=== PATIENT | male | born 2000 | race Caucasian/White ===

== ENCOUNTER 2022-05-22 13:57 | Emergency (ER) | payer OTHER, SELFPAY ==
[2022-05-22 14:06] VITALS: BP 130/78; PULSE 94; RESP 20; TEMP 37; O2SAT 100
[2022-05-22 14:11] VITALS: BP 130/78; PULSE 94; RESP 20; TEMP 37; O2SAT 100
--- NOTE | 2022-05-22 14:41 | ED.GENADULT ---
HPI - General Adult General Chief complaint: Extremity Injury, Upper Stated complaint: Left Hand/ Fingers Numbness Time Seen by Provider: 05/22/22 14:41 Source: patient, RN notes reviewed and old records reviewed Mode of arrival: ambulatory Limitations: no limitations History of Present Illness HPI narrative: 22-year-old male who presents to [facility] care with complaints of experiencing some left hand and finger numbness with some tingling in his lower left arm for about a week. Pateint reports that initially he noted numbness and tingling to his 4th and 5th fingers after working on a 3 hour tattoo Monday evening. He is right hand dominant and draws with right hand but holds skin taunt while doing tattoo. Patient reports that he thinks his symptoms are worse and he feels like he doesn't have is normal strength in his left hand. No obvious deformity, nail beds mahogany briskly pulses strong to his left wrist and brachial region, reports no pain.. MD complaint: numbness and decreased strength left hand Onset (ago): day(s) (6) Treatments prior to arrival: none Related Data Allergies Allergy/AdvReac Type Severity Reaction Status Date / Time No Known Allergies Allergy Verified 05/22/22 14:10 Review of Systems Review of Systems: CONSTITUTIONAL: Denies fever, chills, or sweats. EYES: Denies visual changes, redness, or discharge. ENT: Denies rhinorrhea, congestion, sore throat, or otalgia. CARDIOVASCULAR: Denies chest pain, palpitations, or edema. RESPIRATORY: Denies cough or dyspnea. GASTROINTESTINAL: Denies abdominal pain, nausea, vomiting, or diarrhea. GENITOURINARY: Denies dysuria or hematuria. SKIN: Denies rash or itching. MUSCULOSKELETAL: Denies back pain, joint pain, or myalgia. NEUROLOGIC: Denies headache, positive for numbness and tingling to left hand and lower arm and weakness of hand.. PSYCHIATRIC: Denies anxiety or depression. 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 There is no relevant family history pertinent to the presenting complaint Exam Narrative: GENERAL: Well-appearing, well-nourished, and in no acute distress. HEAD: Normocephalic, atraumatic. EYES: PERRLA and EOMI. ENT: Nares clear, no rhinorrhea or epistaxis. Mucous membranes moist.TM's normal with good light reflex, throat pink with no swelling NECK: Supple. no lymphadenopathy CHEST: Clear to auscultation. No respiratory distress. HEART: Regular rate and rhythm. No murmur heard. Normal peripheral pulses. ABDOMEN: Soft, nontender, nondistended, normal active bowel sounds. EXTREMITIES: Normal range of motion. No edema. reports some paraesthesia to left hand and fingers and some tingling to left lpwer arm. initial was in left 4th and 5th finger after doing a 3 hour tattoo on Monday evening when he was using his left hand to keep skin taunt and feels that symptoms have become worse, patient has full mobility of his left hand and arm with strong pulses with nail beds having brisk capillary refill with fingers and hand warm and pink. SKIN: Warm, dry, no rash. NEURO: No focal deficits. Alert and oriented x3. Course Course Level of Care: Express Care Visit Vital Signs Vital signs: Vital Signs Temperature 37.0 C 05/22/22 14:06 Pulse Rate 94 05/22/22 14:06 Respiratory Rate 20 05/22/22 14:06 Blood Pressure 130/78 05/22/22 14:06 Pulse Oximetry 100 05/22/22 14:06
== END 2022-05-22 15:00 | disposition home or self-care (01) ==
PROVIDERS: Emergency Provider Registered Nurse; PCP Family Medicine
DX: R20.0 Anesthesia of skin (principal); M62.81 Muscle weakness (generalized); F12.90 Cannabis use, unspecified, uncomplicated
CPT/HCPCS: 99203; G0463